=== PATIENT | male | born 1955 | race Two or more races ===

== ENCOUNTER 2018-06-26 08:51 | Emergency (ER) | payer OTHER ==
[~2018-06-26] VITALS: Ht 165.1 cm; Wt 90.7 kg
[2018-06-26 08:58] VITALS: BP 179/86
[2018-06-26] MEDS ORDERED: AMLODIPINE BESY10 MG ORAL (09:02)
[2018-06-26] MEDS ORDERED: ATORVASTATIN CA20 MG ORAL (09:02)
[2018-06-26] MEDS ORDERED: LISINOPRIL10 MG ORAL (09:02)
[2018-06-26] MEDS ORDERED: METFORMIN HCL500 M1 ORAL (09:02)
--- NOTE | 2018-06-26 09:09 | Emergency Room Report ---
History of Present Illness General Chief Complaint: Chest Pain Source: Patient Present Illness HPI Patient present with complaints of midsternal chest pain Radiation up to the right neck area Pain started last night and has persisted throughout the day Denies any shortness of breath denies any pleurisy Denies any vomiting or diarrhea Patient reports taking medication for diabetes Pain as 5 out of 10 heaviness Denies any fall or trauma and denies any change with position Allergies: Coded Allergies: No Known Allergies (Unverified , 06/26/18) Patient History Past Medical History: see triage record Pertinent Family History: none Reviewed Nursing Documentation: PMH: Agreed; PSxH: Agreed Nursing Documentation-PMH Past Medical History: No History, Except For Hx Cardiac Problems: Yes - high cholesterol Hx Hypertension: Yes Hx Diabetes: Yes Review of Systems All Other Systems: negative except mentioned in HPI Physical Exam Vital Signs Date Time Temp Pulse Resp B/P (MAP) Pulse Ox O2 Delivery O2 Flow Rate FiO2 06/26/18 08:54 97.0 89 16 179/86 97 Room Air 06/26/18 08:58 97 Sp02 EP Interpretation: reviewed, normal General Appearance: well appearing, no apparent distress Head: normocephalic, atraumatic Eyes: bilateral eye PERRL, bilateral eye EOMI ENT: hearing grossly normal, normal pharynx, TMs + canals normal, uvula midline Neck: full range of motion, supple, no meningismus, no bony tend Respiratory: lungs clear, normal breath sounds, no rhonchi, no respiratory distress, no retraction, no accessory muscle use Cardiovascular #1: normal peripheral pulses, regular rate, rhythm, no edema, no gallop, no JVD, no murmur Gastrointestinal: normal bowel sounds, non tender, soft, no mass, no organomegaly, non-distended, no guarding, no hernia, no pulsatile mass, no rebound Genitourinary: no CVA tenderness Musculoskeletal: normal inspection Neurologic: oriented x3, responsive, qc analyst III-XII nml as tested, motor strength/ tone normal, sensory intact Psychiatric: mood/affect normal Skin: normal color, no rash, warm/dry, palpation normal Lymphatic: normal inspection, no adenopathy Medical Decision Making Diagnostic Impression: Primary Impression: ACS (acute coronary syndrome) ER Course Patient is a fairly complex patient with multiple differential to consideration including but not limited to cardiac cardiopulmonary and vascular emergencies Patient's cardiac enzyme is negative EKG does not show any acute ST elevations Patient's pain did not improve significantly with nitroglycerin and received further pain medicine Now reporting the patient is worse with movement secondary to insurance purposes requires transfer for continued care Labs Test 06/26/18 09:15 White Blood Count 12.4 K/UL (4.8-10.8) Red Blood Count 4.48 M/UL (4.70-6.10) Hemoglobin 15.1 G/DL (14.2-18.0) Hematocrit 42.9 % (42.0-52.0) Mean Corpuscular Volume 96 FL (80-99) Mean Corpuscular Hemoglobin 33.7 PG (27.0-31.0) Mean Corpuscular Hemoglobin Concent 35.3 G/DL (32.0-36.0) Red Cell Distribution Width 11.1 % (11.6-14.8) Platelet Count 148 K/UL (150-450) Mean Platelet Volume 8.6 FL (6.5-10.1) Neutrophils (%) (Auto) % (45.0-75.0) Lymphocytes (%) (Auto) % (20.0-45.0) Monocytes (%) (Auto) % (1.0-10.0) Eosinophils (%) (Auto) % (0.0-3.0) Basophils (%) (Auto) % (0.0-2.0) Differential Total Cells Counted 100 Neutrophils % (Manual) 84 % (45-75) Lymphocytes % (Manual) 3 % (20-45) Monocytes % (Manual) 3 % (1-10) Eosinophils % (Manual) 0 % (0-3) Basophils % (Manual) 0 % (0-2) Band Neutrophils 10 % (0-8) Platelet Estimate Decreased Platelet Morphology Normal Red Blood Cell Morphology Normal Sodium Level 134 MMOL/L (136-145) Potassium Level 4.1 MMOL/L (3.5-5.1) Chloride Level 100 MMOL/L (98-107) Carbon Dioxide Level 22 MMOL/L (21-32) Anion Gap 12 mmol/L (5-15) Blood Urea Nitrogen 14 mg/dL (7-18) Creatinine 0.9 MG/DL (0.55-1.30) Estimat Glomerular Filtration Rate > 60 mL/min (>60) Glucose Level 335 MG/DL (74-106) Calcium Level 9.1 MG/DL (8.5-10.1) Total Bilirubin 1.1 MG/DL (0.2-1.0) Direct Bilirubin 0.3 MG/DL (0.0-0.3) Aspartate Amino Transf (AST/SGOT) 14 U/L (15-37) Alanine Aminotransferase (ALT/SGPT) 42 U/L (12-78) Alkaline Phosphatase 64 U/L (46-116) Total Creatine Kinase 99 U/L (26-308) Creatine Kinase MB 1.2 NG/ML (0.0-3.6) Creatine Kinase MB Relative Index 1.2 Troponin I 0.000 ng/mL (0.000-0.056) Pro-B-Type Natriuretic Peptide 201 pg/mL (0-125) Total Protein 7.6 G/DL (6.4-8.2) Albumin 3.6 G/DL (3.4-5.0) Globulin 4.0 g/dL Albumin/Globulin Ratio 0.9 (1.0-2.7) Lipase 109 U/L (73-393) EKG Diagnostic Results Rate: normal Rhythm: NSR ST Segments: no acute changes Rhythm Strip Diag. Results EP Interpretation: yes Rate: 66 Rhythm: NSR, no PVC's, no ectopy Chest X-Ray Diagnostic Results Chest X-Ray Diagnostic Results : Chest X-Ray Ordered: Yes # of Views/Limited/Complete: 1 View Indication: Chest Pain EP Interpretation: Yes Interpretation: no consolidation, no effusion, no pneumothorax Impression: No acute disease Electronically Signed by: Dahlia Banuelos DO Last Vital Signs Date Time Temp Pulse Resp B/P (MAP) Pulse Ox O2 Delivery O2 Flow Rate FiO2 06/26/18 08:58 92 14 Room Air 97 06/26/18 08:58 97.0 179/86 97 Status: improved Disposition: XFER SHT-TRM HOSP Condition: Serious Dahlia Banuelos DO Jun 26, 2018 09:09
[2018-06-26] MEDS ORDERED: Aspirin Baby 81mg ORAL ONE (09:15)
[2018-06-26] MEDS ORDERED: Nitroglycerin 2% oint pkt TOPIC ONE (09:15)
[2018-06-26 09:36] LABS: HEMATOCRIT 42.9 % (42.0-52.0); HEMOGLOBIN 15.1 G/DL (14.2-18.0); MEAN CORPUSCULAR VOLUME 96 FL (80-99); PLATELET COUNT 148 K/UL (150-450); RED BLOOD COUNT 4.48 M/UL (4.70-6.10); RED CELL DISTRIBUTION WIDTH 11.1 % (11.6-14.8); WHITE BLOOD COUNT 12.4 K/UL (4.8-10.8)
[2018-06-26 09:56] LABS: ANION GAP 12 mmol/L (5-15); BLOOD UREA NITROGEN 14 mg/dL (7-18); CALCIUM 9.1 MG/DL (8.5-10.1); CARBON DIOXIDE 22 MMOL/L (21-32); CHLORIDE 100 MMOL/L (98-107); CREATININE 0.9 MG/DL (0.55-1.30); POTASSIUM 4.1 MMOL/L (3.5-5.1); SODIUM 134 MMOL/L (136-145)
[2018-06-26 10:11] LABS: ALANINE AMINOTRANSFERASE 42 U/L (12-78); ALBUMIN 3.6 G/DL (3.4-5.0); ALBUMIN/GLOBULIN RATIO 0.9 (1.0-2.7); ALKALINE PHOSPHATASE 64 U/L (46-116); ASPARTATE AMINO TRANSFERASE 14 U/L (15-37); BILIRUBIN,TOTAL 1.1 MG/DL (0.2-1.0); CKMB 1.2 NG/ML (0.0-3.6); CREATINE KINASE 99 U/L (26-308)
[2018-06-26 10:14] LABS: BILIRUBIN,DIRECT 0.3 MG/DL (0.0-0.3)
[2018-06-26] MEDS ORDERED: Morphine Sulfate 4mg/ml Inj (IV/IM USE ONLY) IVP ONE (10:45)
[2018-06-26 11:43] VITALS: BP 141/72
--- NOTE | 2018-06-27 09:12 | Diagnostic Imaging Report ---
Indication: Chest pain Comparison: None A single view chest radiograph was obtained. Findings: Cardiomediastinal appearance is within normal limits for age. The lungs are clear. Pulmonary vascularity is appropriate. The diaphragmatic contour is smooth and costophrenic angles are sharp. No pleural effusions are identified. The bones are unremarkable. Impression: No acute findings
--- NOTE | 2018-06-27 15:59 | Cardiology Report ---
APPROVED REPORT EKG Measurement Heart [id number] Normal sinus rhythm Normal ECG
== END 2018-06-26 11:45 | disposition short-term general hospital (02) ==
LOC: EMR 09:20
DX: I24.9 Acute ischemic heart disease, unspecified (principal); E11.9 Type 2 diabetes mellitus without complications; E78.00 Pure hypercholesterolemia, unspecified; I10 Essential (primary) hypertension
CPT/HCPCS: 36415; 71045; 80053; 82248; 82550; 82553; 83690; 83880; 84484; 85007; 85025; 93005; 96374; 96375; 99285; J2270; J2405

== ENCOUNTER 2019-01-08 06:07 | Inpatient (IN) | payer BC, MEDICAID, OTHER ==
[~2019-01-08] VITALS: Ht 165.1 cm; Wt 102.5 kg
[~2019-01-08 06:07] MED LIST: AMLODIPINE BESY10 MG ORAL; ATORVASTATIN CA20 MG ORAL; LISINOPRIL10 MG ORAL; METFORMIN HCL500 M1 ORAL
--- NOTE | 2019-01-08 06:25 | NUR ---
ED Nurse Note: Pt ambulated to ED from home c/o dizziness/nausea and vomitting since 1700 yesterday. Pt is A&Ox4, denies pain at this time. VSS
[2019-01-08 06:27] VITALS: BP 143/80
[2019-01-08] MEDS ORDERED: Meclizine 25mg tab ORAL ONE (06:45)
[2019-01-08 06:50] LABS: APPEARANCE,URINE CLEAR; BILIRUBIN, URINE NEGATIVE (NEGATIVE); COLOR,URINE PALE YELLOW; GLUCOSE, URINE (UA) 4+ (NEGATIVE); KETONES,URINE NEGATIVE (NEGATIVE); LEUKOCYTE ESTERASE ,URINE NEGATIVE (NEGATIVE); NITRITE,URINE NEGATIVE (NEGATIVE); PH,URINE 5 (4.5-8.0); PROTEIN,URINE 2+ (NEGATIVE); UROBILINOGEN,URINE NORMAL MG/DL (0.0-1.0)
[2019-01-08 06:58] LABS: BASOPHILS % (AUTO) 0.8 % (0.0-2.0); EOSINOPHILS % (AUTO) 2.5 % (0.0-3.0); HEMATOCRIT 42.2 % (42.0-52.0); HEMOGLOBIN 15.2 G/DL (14.2-18.0); LYMPHOCYTES % (AUTO) 30.8 % (20.0-45.0); MEAN CORPUSCULAR VOLUME 91 FL (80-99); MONOCYTES % (AUTO) 5.4 % (1.0-10.0); NEUTROPHILS % (AUTO) 60.5 % (45.0-75.0); PLATELET COUNT 168 K/UL (150-450); RED BLOOD COUNT 4.63 M/UL (4.70-6.10); RED CELL DISTRIBUTION WIDTH 11.3 % (11.6-14.8); WHITE BLOOD COUNT 6.2 K/UL (4.8-10.8)
--- NOTE | 2019-01-08 06:58 | Emergency Room Report ---
History of Present Illness General Chief Complaint: Dizziness Source: Patient Present Illness HPI 63-year-old male with history of hypertension, diabetes, high cholesterol resents with episodic room spinning dizziness and associated nausea with a few episodes of vomiting this morning but started yesterday around 5 PM, triggered by turning his head rapidly. Symptoms like this before, denies headache, denies blurred vision, slurred speech, numbness, tingling, weakness, abdominal pain. He reports he has not tried medications for it, and that he has not had any loss of consciousness, gait instability, but reports he finally came to the ER this morning because it was worse in the start vomiting, yesterday it was more just the dizziness that lasted a few minutes and then improved with rest. Allergies: Coded Allergies: No Known Allergies (Unverified , 06/26/18) Patient History Past Medical History: see triage record Reviewed Nursing Documentation: PMH: Agreed; PSxH: Agreed Nursing Documentation-PMH Past Medical History: No History, Except For Hx Cardiac Problems: Yes - high cholesterol Hx Hypertension: Yes Hx Diabetes: Yes Review of Systems All Other Systems: negative except mentioned in HPI Physical Exam Vital Signs Date Time Temp Pulse Resp B/P (MAP) Pulse Ox O2 Delivery O2 Flow Rate FiO2 01/08/19 06:16 97.9 60 14 143/80 (101) 96 Room Air Sp02 EP Interpretation: reviewed, normal General Appearance: no apparent distress, alert, non-toxic Head: normocephalic Eyes: bilateral eye normal inspection, bilateral eye PERRL, bilateral eye EOMI ENT: normal ENT inspection, hearing grossly normal, normal pharynx, no angioedema, normal voice, moist mucus membranes Neck: normal inspection, full range of motion, supple, thyroid normal, supple/ symm/no masses Respiratory: chest non-tender, lungs clear, normal breath sounds, no rhonchi, no respiratory distress, no retraction, no accessory muscle use, no wheezing, chest symmetrical, palpation of chest normal Cardiovascular #1: normal peripheral pulses, regular rate, rhythm, no edema Cardiovascular #2: 2+ radial (R), 2+ radial (L) Gastrointestinal: normal inspection, non tender, soft, no mass, no guarding, no rebound Rectal: deferred Genitourinary: normal inspection, no CVA tenderness Musculoskeletal: back normal, gait/station normal, normal range of motion, non- tender, no calf tenderness Neurologic: alert, oriented x3, responsive, presales consultant III-XII nml as tested, motor strength/tone normal, sensory intact, cerebellar normal, normal gait, speech normal, nystagmus - +rotatory towards L in both eyes; equivocal juju-hallpike maneuver Psychiatric: judgement/insight normal, memory normal, mood/affect normal Skin: warm/dry Lymphatic: no adenopathy Medical Decision Making Diagnostic Impression: Primary Impression: Dizziness ER Course Patient with signs symptoms consistent with vertigo, given hypertension, diabetes, high cholesterol, age above 60, and no previous history of similar complaints, suspect he is high risk for central vertigo, was given meclizine, head CT with no acute disease, given aspirin, otherwise work-up fairly unremarkable, patient does have reproducible vertigo, will admit for further monitoring, MRI, medications to improve vertigo. EKG Diagnostic Results EKG Time: 06:26 EP Interpretation: no stemi Rate: normal Rhythm: NSR ST Segments: no acute changes ASA given to the pt in ED: Yes Rhythm Strip Diag. Results Rhythm Strip Time: 06:56 EP Interpretation: yes Rate: 63 Rhythm: NSR, no PVC's, no ectopy Chest X-Ray Diagnostic Results Chest X-Ray Diagnostic Results : Chest X-Ray Ordered: Yes # of Views/Limited/Complete: 1 View Indication: Other - htn EP Interpretation: Yes Interpretation: no consolidation, no effusion, no pneumothorax, no acute cardiopulmonary disease Impression: No acute disease Electronically Signed by: Dandy Andersen MD CT/MRI/US Diagnostic Results CT/MRI/US Diagnostic Results : Imaging Test Ordered: ct head noncontrast Impression no acute dz per radiology Last Vital Signs Date Time Temp Pulse Resp B/P (MAP) Pulse Ox O2 Delivery O2 Flow Rate FiO2 01/08/19 06:27 60 14 Room Air 01/08/19 06:27 97.9 143/80 96 Disposition: ADMITTED INPATIENT Condition: Stable Signed Out To: Dr Marcos Referrals: [facility],REFERRING (PCP) DANDY ANDERSEN M.D Jan 08, 2019 06:58
--- NOTE | 2019-01-08 07:06 | NUR ---
HAND-OFF: Report given to Pablo MICHELLE RN.
[2019-01-08 07:07] VITALS: BP 128/83
--- NOTE | 2019-01-08 07:07 | NUR ---
ED Nurse Note: Received patient resting in bed without signs of acute distress.
--- NOTE | 2019-01-08 07:07 | NUR ---
Note jimmy in EDM - 01/08/19 at 0724 by KDEARING ED Nurse Note: Received patient resting in bed. no acute distress noted. daughter at bedside.
[2019-01-08 07:16] LABS: ANION GAP 6 mmol/L (5-15); BLOOD UREA NITROGEN 13 mg/dL (7-18); CALCIUM 9.1 MG/DL (8.5-10.1); CARBON DIOXIDE 25 MMOL/L (21-32); CHLORIDE 104 MMOL/L (98-107); CREATININE 0.9 MG/DL (0.55-1.30); POTASSIUM 3.4 MMOL/L (3.5-5.1); SODIUM 135 MMOL/L (136-145)
[2019-01-08 07:21] LABS: ALANINE AMINOTRANSFERASE 33 U/L (12-78); ALBUMIN/GLOBULIN RATIO 1.1 (1.0-2.7); ALKALINE PHOSPHATASE 60 U/L (46-116); ASPARTATE AMINO TRANSFERASE 18 U/L (15-37); BILIRUBIN,TOTAL 0.6 MG/DL (0.2-1.0)
--- NOTE | 2019-01-08 07:26 | NUR ---
ED Nurse Note: x-ray at bedside.
--- NOTE | 2019-01-08 07:28 | NUR ---
ED Nurse Note: pt went down for CT with 1 tech in stable condition.
--- NOTE | 2019-01-08 07:37 | NUR ---
ED Nurse Note: Pt came back from CT scan in stable condition.
--- NOTE | 2019-01-08 08:34 | Diagnostic Imaging Report ---
Indication: Shortness of Technique: One view of the chest Comparison: 06/26/2018 Findings: Lungs and pleural spaces are clear. Heart size is normal . No significant interim change Impression: No acute process
--- NOTE | 2019-01-08 08:37 | Diagnostic Imaging Report ---
Indications: Vertigo, vomiting Technique: Spiral acquisitions obtained through the brain. Angled axial and coronal 5 x 5 mm slices were reconstructed. Total dose length product 1379.6 mGycm. CTDI vol(s) 70.38 mGy. Dose reduction achieved using automated exposure control Comparison: None. Findings: No acute intracranial hemorrhage or edema, mass effect, nor midline shift. Normal-sized ventricles and extra axial CSF spaces. Normal espino-white differentiation. Intact calvarium. Mastoids are clear. There is ethmoid sinus opacification noted. Impression: Essentially unremarkable exam. Negative for acute intracranial bleed or mass effect Incidental finding of ethmoid sinus disease The CT scanner at [facility] is accredited by the [employer] and the scans are performed using protocols designed to limit radiation exposure to as low as reasonably achievable to attain images of sufficient resolution adequate for diagnostic evaluation.
--- NOTE | 2019-01-08 09:00 | NUR ---
ED Nurse Note: per AMISHA Rivero she is with another pt at this moment and CN in meeting. she will call me back in 10 minutes.
[2019-01-08] MEDS: Aspirin Baby 81mg ORAL SCH (09:11)
--- NOTE | 2019-01-08 09:16 | NUR ---
ED Nurse Note: called again for report. no answer. will try again.
--- NOTE | 2019-01-08 09:24 | NUR ---
ED Nurse Note: Report given to AMISHA Rivero.
--- NOTE | 2019-01-08 09:28 | NUR ---
ED Nurse Note: pt left unit with 1 services tech and 1 RN in stable condition.
--- NOTE | 2019-01-08 10:00 | NUR ---
NURSE NOTES: Admitted patient from ER TO tele RM 204-1 via wheelchair. Patient is alert and oriented X4, denies any pain at this time. No nausea and vomiting noted. Patient is ambulatory with steady gait.. Skin is intact. IV is intact and patent, SL. Oriented patient to room and surrounding. Bed is on lowest level, brakes engaged for safety. is at bedside. Patient's money $119.00 sent home with patient's (Charito Tavarez). Notified MD of admission. All admission orders received and entered. Patient is resting comfortably in room. Will continue with the plan of care.
[2019-01-08 10:44] VITALS: BP 126/70
[2019-01-08 12:00] VITALS: BP 121/79
--- NOTE | 2019-01-08 14:33 | Consultation ---
Consult Note Consult Note 63-year-old male with history of hypertension, diabetes, high cholesterol resents with episodic room spinning dizziness and associated nausea with a few episodes of vomiting this morning but started yesterday around 5 PM, triggered by turning his head rapidly. Symptoms like this before, denies headache, denies blurred vision, slurred speech, numbness, tingling, weakness, abdominal pain. He reports he has not tried medications for it, and that he has not had any loss of consciousness, gait instability, but reports he finally came to the ER this morning because it was worse in the start vomiting, yesterday it was more just the dizziness that lasted a few minutes and then improved with rest. No Known Allergies (Unverified , 06/26/18) Past Medical History: No History, Except For Hx Cardiac Problems: Yes - high cholesterol Hx Hypertension: Yes Hx Diabetes: Yes examined interviewed Assessment/Plan ? Dehydration- Orthostatics DM + Proteinuria HTN ? Gastroparesis Hold BP meds BP and BS check K supplement per orders Janes Cruz MD Jan 08, 2019 14:33
[2019-01-08] MEDS ORDERED: Meclizine 25mg tab ORAL PRN (14:45)
[2019-01-08] MEDS: Nateglinide 60mg tab ORAL SCH (16:22)
[2019-01-08] MEDS: NovoLOG Insulin Flexpen SUBQ SCH ×2 (17:24→21:00)
--- NOTE | 2019-01-08 18:49 | Cardiology Report ---
APPROVED REPORT EKG Measurement Heart [id number] Normal sinus rhythm Normal ECG
--- NOTE | 2019-01-08 19:17 | NUR ---
HAND-OFF: Report given to AMISHA Aguilar. Patient is in stable condition.
--- NOTE | 2019-01-08 19:18 | NUR ---
NURSE NOTES: Got report from Nikolas LION. Pt in stable condition. Denies any pain. No s/s of distress or discomfort noted. Pt resting in bed comfortably. Bed in low and locked position, call light within reach, bedside table within reach. Continue to monitor.
[2019-01-08 20:00] VITALS: BP 128/66
[2019-01-09 00:07] VITALS: BP 125/67
[2019-01-09 04:20] VITALS: BP 129/70
[2019-01-09] MEDS: Nateglinide 60mg tab ORAL SCH ×2 (06:00→11:45)
[2019-01-09] MEDS: NovoLOG Insulin Flexpen SUBQ SCH ×3 (06:03→16:49)
[2019-01-09 07:31] LABS: BASOPHILS % (AUTO) 0.7 % (0.0-2.0); HEMATOCRIT 41.5 % (42.0-52.0); HEMOGLOBIN 14.5 G/DL (14.2-18.0); LYMPHOCYTES % (AUTO) 45.6 % (20.0-45.0); MEAN CORPUSCULAR VOLUME 93 FL (80-99); MONOCYTES % (AUTO) 7.3 % (1.0-10.0); NEUTROPHILS % (AUTO) 42.5 % (45.0-75.0); PLATELET COUNT 176 K/UL (150-450); RED BLOOD COUNT 4.44 M/UL (4.70-6.10); RED CELL DISTRIBUTION WIDTH 11.7 % (11.6-14.8); WHITE BLOOD COUNT 4.5 K/UL (4.8-10.8)
--- NOTE | 2019-01-09 07:32 | NUR ---
HAND-OFF: Report given to Nikolas LION. Endorsed plan of care.
--- NOTE | 2019-01-09 07:33 | NUR ---
NURSE NOTES: Received patient and report from AMISHA Hernandez. Denies any pain. No s/s of distress or discomfort noted. Patient is eating breakfast. Bed in low and locked position, brakes engaged for safety. Call light within reach, bedside table within reach. Will continue with the plan of care.
--- NOTE | 2019-01-09 07:35 | NUR ---
CASE MANAGEMENT:REVIEW 63 YR OLD MALE PRESENTED TO ER CC: DIZZINESS, NAUSEA AND VOMITING SI: DIZZINESS. ?DEHYDRATION 97.9 60 14 143/80 96% ON RA K-3.4 GLUCOSE+292 IS: IV ZOFRAN 1L NS BOLUS MECLIZINE PO CT ABD/PELVIS CHEST XRAY : TO TELEMETRY UNIT DCP: FROM HOME INTERQUAL CRITERIA MET
[2019-01-09 08:00] VITALS: BP 139/84
[2019-01-09 08:01] LABS: ALANINE AMINOTRANSFERASE 34 U/L (12-78); ALBUMIN/GLOBULIN RATIO 1.3 (1.0-2.7); ALKALINE PHOSPHATASE 50 U/L (46-116); ANION GAP 10 mmol/L (5-15); ASPARTATE AMINO TRANSFERASE 22 U/L (15-37); BILIRUBIN,TOTAL 0.7 MG/DL (0.2-1.0); BLOOD UREA NITROGEN 11 mg/dL (7-18); CARBON DIOXIDE 26 MMOL/L (21-32); CHLORIDE 103 MMOL/L (98-107); CHOLESTEROL 182 MG/DL (< 200); CREATININE 0.8 MG/DL (0.55-1.30); HDL CHOLESTEROL 26 MG/DL (40-60); PHOSPHORUS 3.7 MG/DL (2.5-4.9); POTASSIUM 3.8 MMOL/L (3.5-5.1); SODIUM 139 MMOL/L (136-145); TRIGLYCERIDES 260 MG/DL (30-150)
[2019-01-09] MEDS: Aspirin Baby 81mg ORAL SCH (08:20)
--- NOTE | 2019-01-09 08:47 | Consultation ---
History of Present Illness General Date patient seen: Jan 09, 2019 Reason for Hospitalization: Dizziness Present Illness HPI 63-year-old male with history of hypertension, diabetes, high cholesterol resents with episodic room spinning dizziness and associated nausea with a few episodes of vomiting this morning but started yesterday around 5 PM, triggered by turning his head rapidly. Symptoms like this before, denies headache, denies blurred vision, slurred speech, numbness, tingling, weakness, abdominal pain. He reports he has not tried medications for it, and that he has not had any loss of consciousness, gait instability, but reports he finally came to the ER this morning because it was worse in the start vomiting, yesterday it was more just the dizziness that lasted a few minutes and then improved with rest. Allergies: Coded Allergies: No Known Allergies (Unverified , 06/26/18) Medication History Scheduled Amlodipine Besylate* (Amlodipine Besylate*), Unknown Dose ORAL DAILY, (Reported) Atorvastatin Calcium* (Atorvastatin Calcium*), Unknown Dose ORAL BEDTIME, ( Reported) Lisinopril* (Lisinopril*), 10 MG ORAL DAILY, (Reported) Metformin Hcl* (Metformin Hcl*), 500 MG ORAL TWICE A DAY, (Reported) Patient History Healthcare decision maker Resuscitation status Full Code Advanced Directive on File No Review of Systems Review of Symptoms General ROS: no weight loss or fever Psychological ROS: no depression or mood changes, no memory loss Ophthalmic ROS: no visual changes or eye irritation ENT ROS: no nasal congestion, hearing loss, dizziness Allergy and Immunology ROS: no allergic symptoms or urticaria Hematological and Lymphatic ROS: no swollen glands, unusual bleeding or bruising Endocrine ROS: no polyuria, polydipsia, weight changes, temperature intolerance Respiratory ROS: no cough, shortness of breath, or wheezing Cardiovascular ROS: no chest pain or dyspnea on exertion Gastrointestinal ROS: denies abdominal pain, bright red blood in stool. Musculoskeletal ROS: no myalgias or arthralgias Neurological ROS: no TIA or stroke symptoms Dermatological ROS: no new or changing skin lesions, rashes or pruritis Physical Exam Physical Exam General appearance: alert, cooperative, no distress, appears stated age Head: Normocephalic, without obvious abnormality, atraumatic Eyes: conjunctivae/corneas clear. PERRL, EOM's intact. Fundi benign Throat: Lips, mucosa, and tongue normal. Teeth and gums normal Neck: supple, symmetrical, trachea midline, no adenopathy, thyroid: not enlarged, symmetric, no tenderness/mass/nodules, no carotid bruit and no JVD Lungs: clear to auscultation bilaterally Heart: regular rate and rhythm, S1, S2 normal, no murmur, click, rub or gallop Abdomen: soft, non-tender. Bowel sounds normal. No masses, no organomegaly Extremities: extremities normal, atraumatic, no cyanosis or edema Pulses: 2+ and symmetric Skin: Skin color, texture, turgor normal. No rashes or lesions Neurologic: Grossly normal Last 24 Hour Vital Signs Date Time Temp Pulse Resp B/P (MAP) Pulse Ox O2 Delivery O2 Flow Rate FiO2 01/09/19 04:20 98.0 68 19 129/70 (89) 95 01/09/19 04:01 48 01/09/19 00:07 97.9 69 19 125/67 (86) 95 01/09/19 00:00 50 01/08/19 23:00 Room Air 01/08/19 20:00 97.7 67 19 128/66 (86) 95 01/08/19 20:00 74 01/08/19 16:00 60 01/08/19 12:00 97.9 71 20 121/79 (93) 97 01/08/19 12:00 62 01/08/19 10:44 97.7 58 20 126/70 (88) 96 01/08/19 10:39 Room Air 01/08/19 09:40 58 01/08/19 09:28 97.9 70 16 126/78 100 Room Air Intake and Output 01/08/19 01/09/19 19:00 07:00 Intake Total 1500 ml Balance 1500 ml Intake Oral 500 ml IV Total 1000 ml # Voids 3 6 # Bowel Movements 1 1 Laboratory Tests Test 01/09/19 05:23 White Blood Count 4.5 K/UL (4.8-10.8) L Red Blood Count 4.44 M/UL (4.70-6.10) L Hemoglobin 14.5 G/DL (14.2-18.0) Hematocrit 41.5 % (42.0-52.0) L Mean Corpuscular Volume 93 FL (80-99) Mean Corpuscular Hemoglobin 32.6 PG (27.0-31.0) H Mean Corpuscular Hemoglobin Concent 34.8 G/DL (32.0-36.0) Red Cell Distribution Width 11.7 % (11.6-14.8) Platelet Count 176 K/UL (150-450) Mean Platelet Volume 6.9 FL (6.5-10.1) Neutrophils (%) (Auto) 42.5 % (45.0-75.0) L Lymphocytes (%) (Auto) 45.6 % (20.0-45.0) H Monocytes (%) (Auto) 7.3 % (1.0-10.0) Eosinophils (%) (Auto) 4.0 % (0.0-3.0) H Basophils (%) (Auto) 0.7 % (0.0-2.0) Sodium Level 139 MMOL/L (136-145) Potassium Level 3.8 MMOL/L (3.5-5.1) Chloride Level 103 MMOL/L (98-107) Carbon Dioxide Level 26 MMOL/L (21-32) Anion Gap 10 mmol/L (5-15) Blood Urea Nitrogen 11 mg/dL (7-18) Creatinine 0.8 MG/DL (0.55-1.30) Estimat Glomerular Filtration Rate > 60 mL/min (>60) Glucose Level 187 MG/DL (74-106) #H Hemoglobin A1c 8.1 % (4.3-6.0) H Uric Acid 5.7 MG/DL (2.6-7.2) Calcium Level 9.0 MG/DL (8.5-10.1) Phosphorus Level 3.7 MG/DL (2.5-4.9) Magnesium Level 1.9 MG/DL (1.8-2.4) Total Bilirubin 0.7 MG/DL (0.2-1.0) Aspartate Amino Transf (AST/SGOT) 22 U/L (15-37) Alanine Aminotransferase (ALT/SGPT) 34 U/L (12-78) Alkaline Phosphatase 50 U/L (46-116) Troponin I 0.000 ng/mL (0.000-0.056) C-Reactive Protein, Quantitative < 0.4 mg/dL (0.00-0.90) Pro-B-Type Natriuretic Peptide 46 pg/mL (0-125) Total Protein 7.0 G/DL (6.4-8.2) Albumin 4.0 G/DL (3.4-5.0) Globulin 3.0 g/dL Albumin/Globulin Ratio 1.3 (1.0-2.7) Triglycerides Level 260 MG/DL (30-150) H Cholesterol Level 182 MG/DL (< 200) LDL Cholesterol 112 mg/dL (<100) H HDL Cholesterol 26 MG/DL (40-60) L Cholesterol/HDL Ratio 7.0 (3.3-4.4) H Vitamin B12 Level 477 PG/ML (193-986) Thyroid Stimulating Hormone (TSH) 1.545 uiU/mL (0.358-3.740) Height (Feet): 5 Height (Inches): 5.00 Weight (Pounds): 226 Medications Current Medications Medications (Trade) Dose Ordered Sig/Jade Route PRN Reason Start Time Stop Time Status Last Admin Dose Admin Aspirin (ASA) 162 mg DAILY ORAL 01/08/19 09:15 02/07/19 09:14 01/09/19 08:20 Dextrose (Dextrose 50%) 25 ml Q30M PRN IV Hypoglycemia 01/08/19 16:00 02/07/19 15:59 Dextrose (Dextrose 50%) 50 ml Q30M PRN IV Hypoglycemia 01/08/19 16:00 02/07/19 15:59 Insulin Aspart (NovoLOG) BEFORE MEALS AND HS SUBQ 01/08/19 16:30 02/07/19 16:29 01/09/19 06:03 Meclizine HCl (Antivert) 25 mg Q6H PRN ORAL for dizziness 01/08/19 14:45 02/07/19 14:44 Nateglinide (Starlix) 60 mg TIAC ORAL 01/08/19 16:30 02/07/19 16:29 01/09/19 06:00 Ondansetron HCl (Zofran) 4 mg Q6H PRN IVP Nausea & Vomiting 01/08/19 11:15 02/07/19 11:14 Pantoprazole (Protonix) 40 mg BID ORAL 01/08/19 18:00 02/08/19 08:59 01/09/19 08:20 Potassium Chloride (K-Dur) 40 meq DAILY ORAL 01/08/19 14:31 02/07/19 14:30 01/09/19 08:19 Assessment/Plan Problem List: (1) Chest pain ICD Codes: R07.9 - Chest pain, unspecified SNOMED: 51265396 (2) Dizziness ICD Codes: R42 - Dizziness and giddiness SNOMED: 460792572, [id number] Assessment/Plan: Intermittent vertigo likely peripheral bppv. Lightheadedness resolved no need for mri brain pt ot and dispo [facility] Hospital declaration INPATIENT level of care is warranted for this patient because patient is a 89 year old with who presents with suspicion of . I have a high level of concern because . Patient is at high risk for . Plan of care/treatment include . Patient care is expected to be greater than 2 midnights. OBSERVATION level of care is warranted for this patient. Patient is a 89 year old with who presents with . Patient will be admitted for 1 midnight, but if additional night(s) is/are necessary, patient will be converted to inpatient status for the entire hospitalization Disposition: Once the patient is stable to leave the hospital, I anticipate the patient will likely be discharged to the following environment: Estimated discharge date: I spent 70 minutes on this patient's case, and minutes was dedicated to counseling and/or care coordination. MIPS (Merit-based Incentive Payment System) Applicable CPT: 70184, 74679 CHECK ALL THAT ARE MET: Measure #5 (CHF): All ages. Prescribe LISA/ARB upon discharge for patients with left ventricular systolic dysfunction. If not, the reason is clearly documented in the medical chart. Measure #8 (CHF): All ages. Prescribe a beta randa upon discharge for patients with left ventricular systolic dysfunction. If not, the reason is clearly documented in the medical chart. Measure #47 Advance care plan or surrogate decision maker documented in the medical record. Measure #130 The provider has documented, updated, or reviewed the patients current medication list and has documented it in the patients note. Measure #374 (All): Send report to referring provider. Measure #407(Sepsis due to MSSA bacteremia): Age 18+ Patient treated with a beta-lactam antibiotic (Nafcillin, Oxacillin or Cefazolin) as definitive therapy. MEDICAL COMPLEXITY High complexity medical decision making (need 2/3 categories) Problem - need 4 points Acute/new problem with new plan for workup (4 points, 1 max) Acute/new problem without additional workup (3 points, 1 max) Unstable chronic problem actively being managed (2 point each, 2 max) Stable chronic problem actively being managed (1 point each, 2 max) Self-limited/transient process (constipation, muscle ache, etc) (1 point each , 2 max) Data - need 4 points Reviewed labs/imaging studies (1 points, 2 max) Independent review of imaging (EKG, xrays, etc) (2 points, 2 max) Discussed case with consult/other MD/RN (2 points, 2 max) High Risk - qualify if have one of the following: Severe exacerbation of acute problem, acute mental status change, IV narcotics , monitoring drug levels (vancomycin, INR, tacrolimus etc) Devonte Toscano MD Jan 09, 2019 08:47
--- NOTE | 2019-01-09 10:02 | NUR ---
*-* INSURANCE *-* ALL CLINICALS AND REVIEWS HAVE BEEN FAXED TO: [facility] BESS:[facility]MI F:[phone]
--- NOTE | 2019-01-09 10:40 | NUR ---
INSURANCE UPDATED CLINICALS and REVIEW HAVE BEEN FAXED PLEASE FAX THE REVIEW AND CLINICAL TO: [facility] F: [phone] P: [phone]
[2019-01-09 12:00] VITALS: BP 147/85
--- NOTE | 2019-01-09 12:16 | Consultation ---
History of Present Illness General Chief Complaint: Dizziness Present Illness Allergies: Coded Allergies: No Known Allergies (Unverified , 06/26/18) Medication History Scheduled Amlodipine Besylate* (Amlodipine Besylate*), Unknown Dose ORAL DAILY, (Reported) Atorvastatin Calcium* (Atorvastatin Calcium*), Unknown Dose ORAL BEDTIME, ( Reported) Lisinopril* (Lisinopril*), 10 MG ORAL DAILY, (Reported) Metformin Hcl* (Metformin Hcl*), 500 MG ORAL TWICE A DAY, (Reported) Patient History Healthcare decision maker Resuscitation status Full Code Advanced Directive on File No Physical Exam Last 24 Hour Vital Signs Date Time Temp Pulse Resp B/P (MAP) Pulse Ox O2 Delivery O2 Flow Rate FiO2 01/09/19 08:57 Room Air 01/09/19 08:00 92 01/09/19 08:00 97.8 77 20 139/84 (102) 97 01/09/19 04:20 98.0 68 19 129/70 (89) 95 01/09/19 04:01 48 01/09/19 00:07 97.9 69 19 125/67 (86) 95 01/09/19 00:00 50 01/08/19 23:00 Room Air 01/08/19 20:00 97.7 67 19 128/66 (86) 95 01/08/19 20:00 74 01/08/19 16:00 60 Intake and Output 01/08/19 01/09/19 19:00 07:00 Intake Total 1500 ml Balance 1500 ml Intake Oral 500 ml IV Total 1000 ml # Voids 3 6 # Bowel Movements 1 1 Laboratory Tests Test 01/09/19 05:23 White Blood Count 4.5 K/UL (4.8-10.8) L Red Blood Count 4.44 M/UL (4.70-6.10) L Hemoglobin 14.5 G/DL (14.2-18.0) Hematocrit 41.5 % (42.0-52.0) L Mean Corpuscular Volume 93 FL (80-99) Mean Corpuscular Hemoglobin 32.6 PG (27.0-31.0) H Mean Corpuscular Hemoglobin Concent 34.8 G/DL (32.0-36.0) Red Cell Distribution Width 11.7 % (11.6-14.8) Platelet Count 176 K/UL (150-450) Mean Platelet Volume 6.9 FL (6.5-10.1) Neutrophils (%) (Auto) 42.5 % (45.0-75.0) L Lymphocytes (%) (Auto) 45.6 % (20.0-45.0) H Monocytes (%) (Auto) 7.3 % (1.0-10.0) Eosinophils (%) (Auto) 4.0 % (0.0-3.0) H Basophils (%) (Auto) 0.7 % (0.0-2.0) Sodium Level 139 MMOL/L (136-145) Potassium Level 3.8 MMOL/L (3.5-5.1) Chloride Level 103 MMOL/L (98-107) Carbon Dioxide Level 26 MMOL/L (21-32) Anion Gap 10 mmol/L (5-15) Blood Urea Nitrogen 11 mg/dL (7-18) Creatinine 0.8 MG/DL (0.55-1.30) Estimat Glomerular Filtration Rate > 60 mL/min (>60) Glucose Level 187 MG/DL (74-106) #H Hemoglobin A1c 8.1 % (4.3-6.0) H Uric Acid 5.7 MG/DL (2.6-7.2) Calcium Level 9.0 MG/DL (8.5-10.1) Phosphorus Level 3.7 MG/DL (2.5-4.9) Magnesium Level 1.9 MG/DL (1.8-2.4) Total Bilirubin 0.7 MG/DL (0.2-1.0) Aspartate Amino Transf (AST/SGOT) 22 U/L (15-37) Alanine Aminotransferase (ALT/SGPT) 34 U/L (12-78) Alkaline Phosphatase 50 U/L (46-116) Troponin I 0.000 ng/mL (0.000-0.056) C-Reactive Protein, Quantitative < 0.4 mg/dL (0.00-0.90) Pro-B-Type Natriuretic Peptide 46 pg/mL (0-125) Total Protein 7.0 G/DL (6.4-8.2) Albumin 4.0 G/DL (3.4-5.0) Globulin 3.0 g/dL Albumin/Globulin Ratio 1.3 (1.0-2.7) Triglycerides Level 260 MG/DL (30-150) H Cholesterol Level 182 MG/DL (< 200) LDL Cholesterol 112 mg/dL (<100) H HDL Cholesterol 26 MG/DL (40-60) L Cholesterol/HDL Ratio 7.0 (3.3-4.4) H Vitamin B12 Level 477 PG/ML (193-986) Thyroid Stimulating Hormone (TSH) 1.545 uiU/mL (0.358-3.740) Height (Feet): 5 Height (Inches): 5.00 Weight (Pounds): 226 Medications Current Medications Medications (Trade) Dose Ordered Sig/Jade Route PRN Reason Start Time Stop Time Status Last Admin Dose Admin Aspirin (ASA) 162 mg DAILY ORAL 01/08/19 09:15 02/07/19 09:14 01/09/19 08:20 Dextrose (Dextrose 50%) 25 ml Q30M PRN IV Hypoglycemia 01/08/19 16:00 02/07/19 15:59 Dextrose (Dextrose 50%) 50 ml Q30M PRN IV Hypoglycemia 01/08/19 16:00 02/07/19 15:59 Insulin Aspart (NovoLOG) BEFORE MEALS AND HS SUBQ 01/08/19 16:30 02/07/19 16:29 01/09/19 11:47 Meclizine HCl (Antivert) 25 mg Q6H PRN ORAL for dizziness 01/08/19 14:45 02/07/19 14:44 Nateglinide (Starlix) 60 mg TIAC ORAL 01/08/19 16:30 02/07/19 16:29 01/09/19 11:45 Ondansetron HCl (Zofran) 4 mg Q6H PRN IVP Nausea & Vomiting 01/08/19 11:15 02/07/19 11:14 Pantoprazole (Protonix) 40 mg BID ORAL 01/08/19 18:00 02/08/19 08:59 01/09/19 08:20 Potassium Chloride (K-Dur) 40 meq DAILY ORAL 01/08/19 14:31 02/07/19 14:30 01/09/19 08:19 Assessment/Plan Assessment/Plan: Hematology Consult REQ MD: Dahlia Marcos Date patient seen: Jan 09, 2019 Reason for Hospitalization: Dizziness RFC: Leukopenia ID 63-year-old male with history of hypertension, diabetes, high cholesterol resents with episodic room spinning dizziness and associated nausea with a few episodes of vomiting this morning but started yesterday around 5 PM, triggered by turning his head rapidly. Symptoms like this before, denies headache, denies blurred vision, slurred speech, numbness, tingling, weakness, abdominal pain. He reports he has not tried medications for it, and that he has not had any loss of consciousness, gait instability, but reports he finally came to the ER this morning because it was worse in the start vomiting, yesterday it was more just the dizziness that lasted a few minutes and then improved with rest.Hepatitis panel and hiv have been ordered, heme was consulted. All No Known Allergies (Unverified , 06/26/18) Medication Scheduled Amlodipine Besylate* (Amlodipine Besylate*), Unknown Dose ORAL DAILY, (Reported) Atorvastatin Calcium* (Atorvastatin Calcium*), Unknown Dose ORAL BEDTIME, ( Reported) Lisinopril* (Lisinopril*), 10 MG ORAL DAILY, (Reported) Metformin Hcl* (Metformin Hcl*), 500 MG ORAL TWICE A DAY, (Reported) Patient History Healthcare decision maker Resuscitation status Full Code Advanced Directive on File No Review of Symptoms General ROS: no weight loss or fever Psychological ROS: no depression or mood changes, no memory loss Ophthalmic ROS: no visual changes or eye irritation ENT ROS: no nasal congestion, hearing loss, dizziness Allergy and Immunology ROS: no allergic symptoms or urticaria Hematological and Lymphatic ROS: no swollen glands Endocrine ROS: no polyuria, polydipsia Respiratory ROS: no cough, shortness of breath, or wheezing Cardiovascular ROS: no chest pain or dyspnea on exertion Gastrointestinal ROS: denies abdominal pain, bright red blood in stool. Musculoskeletal ROS: no myalgias or arthralgias Neurological ROS: no TIA or stroke symptoms Physical Exam General appearance: alert, cooperative, no distress, appears stated age Head: Normocephalic, without obvious abnormality, atraumatic Eyes: conjunctivae/corneas clear. PERRL, EOM's intact. Fundi benign Throat: Lips, mucosa, and tongue normal. Teeth and gums normal Neck: supple, symmetrical, trachea midline, no adenopathy, thyroid Lungs: clear to auscultation bilaterally Heart: regular rate and rhythm, S1, S2 normal Abdomen: soft, non-tender. Bowel sounds normal Extremities: extremities normal, atraumatic Pulses: 2+ and symmetric Skin: Skin color, texture, turgor normal. No rashes or lesions Last 24 Hour Vital Signs Date Time Temp Pulse Resp B/P (MAP) Pulse Ox O2 Delivery O2 Flow Rate FiO2 01/09/19 04:20 98.0 68 19 129/70 (89) 95 01/09/19 04:01 48 01/09/19 00:07 97.9 69 19 125/67 (86) 95 01/09/19 00:00 50 01/08/19 23:00 Room Air 01/08/19 20:00 97.7 67 19 128/66 (86) 95 01/08/19 20:00 74 01/08/19 16:00 60 01/08/19 12:00 97.9 71 20 121/79 (93) 97 01/08/19 12:00 62 01/08/19 10:44 97.7 58 20 126/70 (88) 96 01/08/19 10:39 Room Air 01/08/19 09:40 58 01/08/19 09:28 97.9 70 16 126/78 100 Room Air Intake and Output 01/08/19 01/09/19 19:00 07:00 Intake Total 1500 ml Balance 1500 ml Intake Oral 500 ml IV Total 1000 ml # Voids 3 6 # Bowel Movements 1 1 Laboratory Tests Test 01/09/19 05:23 White Blood Count 4.5 K/UL (4.8-10.8) L Red Blood Count 4.44 M/UL (4.70-6.10) L Hemoglobin 14.5 G/DL (14.2-18.0) Hematocrit 41.5 % (42.0-52.0) L Mean Corpuscular Volume 93 FL (80-99) Mean Corpuscular Hemoglobin 32.6 PG (27.0-31.0) H Mean Corpuscular Hemoglobin Concent 34.8 G/DL (32.0-36.0) Red Cell Distribution Width 11.7 % (11.6-14.8) Platelet Count 176 K/UL (150-450) Mean Platelet Volume 6.9 FL (6.5-10.1) Neutrophils (%) (Auto) 42.5 % (45.0-75.0) L Lymphocytes (%) (Auto) 45.6 % (20.0-45.0) H Monocytes (%) (Auto) 7.3 % (1.0-10.0) Eosinophils (%) (Auto) 4.0 % (0.0-3.0) H Basophils (%) (Auto) 0.7 % (0.0-2.0) Sodium Level 139 MMOL/L (136-145) Potassium Level 3.8 MMOL/L (3.5-5.1) Chloride Level 103 MMOL/L (98-107) Carbon Dioxide Level 26 MMOL/L (21-32) Anion Gap 10 mmol/L (5-15) Blood Urea Nitrogen 11 mg/dL (7-18) Creatinine 0.8 MG/DL (0.55-1.30) Estimat Glomerular Filtration Rate > 60 mL/min (>60) Glucose Level 187 MG/DL (74-106) #H Hemoglobin A1c 8.1 % (4.3-6.0) H Uric Acid 5.7 MG/DL (2.6-7.2) Calcium Level 9.0 MG/DL (8.5-10.1) Phosphorus Level 3.7 MG/DL (2.5-4.9) Magnesium Level 1.9 MG/DL (1.8-2.4) Total Bilirubin 0.7 MG/DL (0.2-1.0) Aspartate Amino Transf (AST/SGOT) 22 U/L (15-37) Alanine Aminotransferase (ALT/SGPT) 34 U/L (12-78) Alkaline Phosphatase 50 U/L (46-116) Troponin I 0.000 ng/mL (0.000-0.056) C-Reactive Protein, Quantitative < 0.4 mg/dL (0.00-0.90) Pro-B-Type Natriuretic Peptide 46 pg/mL (0-125) Total Protein 7.0 G/DL (6.4-8.2) Albumin 4.0 G/DL (3.4-5.0) Globulin 3.0 g/dL Albumin/Globulin Ratio 1.3 (1.0-2.7) Triglycerides Level 260 MG/DL (30-150) H Cholesterol Level 182 MG/DL (< 200) LDL Cholesterol 112 mg/dL (<100) H HDL Cholesterol 26 MG/DL (40-60) L Cholesterol/HDL Ratio 7.0 (3.3-4.4) H Vitamin B12 Level 477 PG/ML (193-986) Thyroid Stimulating Hormone (TSH) 1.545 uiU/mL (0.358-3.740) Height (Feet): 5 Height (Inches): 5.00 Weight (Pounds): 226 Medications Current Medications Medications (Trade) Dose Ordered Sig/Jade Route PRN Reason Start Time Stop Time Status Last Admin Dose Admin Aspirin (ASA) 162 mg DAILY ORAL 01/08/19 09:15 02/07/19 09:14 01/09/19 08:20 Dextrose (Dextrose 50%) 25 ml Q30M PRN IV Hypoglycemia 01/08/19 16:00 02/07/19 15:59 Dextrose (Dextrose 50%) 50 ml Q30M PRN IV Hypoglycemia 01/08/19 16:00 02/07/19 15:59 Insulin Aspart (NovoLOG) BEFORE MEALS AND HS SUBQ 01/08/19 16:30 02/07/19 16:29 01/09/19 06:03 Meclizine HCl (Antivert) 25 mg Q6H PRN ORAL for dizziness 01/08/19 14:45 02/07/19 14:44 Nateglinide (Starlix) 60 mg TIAC ORAL 01/08/19 16:30 02/07/19 16:29 01/09/19 06:00 Ondansetron HCl (Zofran) 4 mg Q6H PRN IVP Nausea & Vomiting 01/08/19 11:15 02/07/19 11:14 Pantoprazole (Protonix) 40 mg BID ORAL 01/08/19 18:00 02/08/19 08:59 01/09/19 08:20 Potassium Chloride (K-Dur) 40 meq DAILY ORAL 01/08/19 14:31 02/07/19 14:30 01/09/19 08:19 Assessment/Plan # Leukopenia -- multiple etiologies could be related to underlying liver disease , medication-induced, infection versus viral syndrome, as well as congenital --> peripheral smear has been ordered and does not show significant abnormalities --> Medications have been reviewed --> Continue to monitor for improvement, trend cbc --> Hep panel and HIV have been ordered --> US abd ordered to r/o cirrhosis and hepatosplenomegaly # Chest pain currently improved --> r/o acs # Dizziness - intermittent vertigo likely peripheral bppv. --> per neuro, no need for mri brain # HTN --> sbp goal is <140 --> anti-htn # DM2 --> accuchecks qac and qhs --> per endo The timing of this note does not necessarily reflect the time of the patient was seen. Greatly appreciate consultation! Danish Spivey MD Jan 09, 2019 12:16
--- NOTE | 2019-01-09 14:56 | Nephrology Progress Note ---
Assessment/Plan Problem List: (1) Dizziness (2) Diabetes mellitus (3) Dehydration (4) Proteinuria Assessment ? Dehydration- Orthostatics DM + Proteinuria HTN ? Gastroparesis . Plan Hold BP meds BP and BS check K supplement per orders ? med surg? Tricor for high Trigs Subjective ROS Limited/Unobtainable: No Constitutional: Reports: other - not dizzy Objective Objective Last 24 Hour Vital Signs Date Time Temp Pulse Resp B/P (MAP) Pulse Ox O2 Delivery O2 Flow Rate FiO2 01/09/19 12:00 58 01/09/19 12:00 97.3 58 20 147/85 (105) 97 01/09/19 08:57 Room Air 01/09/19 08:00 92 01/09/19 08:00 97.8 77 20 139/84 (102) 97 01/09/19 04:20 98.0 68 19 129/70 (89) 95 01/09/19 04:01 48 01/09/19 00:07 97.9 69 19 125/67 (86) 95 01/09/19 00:00 50 01/08/19 23:00 Room Air 01/08/19 20:00 97.7 67 19 128/66 (86) 95 01/08/19 20:00 74 01/08/19 16:00 60 Intake and Output 01/08/19 01/09/19 19:00 07:00 Intake Total 1500 ml Balance 1500 ml Intake Oral 500 ml IV Total 1000 ml # Voids 3 6 # Bowel Movements 1 1 Current Medications Medications (Trade) Dose Ordered Sig/Jade Route PRN Reason Start Time Stop Time Status Last Admin Dose Admin Aspirin (ASA) 162 mg DAILY ORAL 01/08/19 09:15 02/07/19 09:14 01/09/19 08:20 Dextrose (Dextrose 50%) 25 ml Q30M PRN IV Hypoglycemia 01/08/19 16:00 02/07/19 15:59 Dextrose (Dextrose 50%) 50 ml Q30M PRN IV Hypoglycemia 01/08/19 16:00 02/07/19 15:59 Insulin Aspart (NovoLOG) BEFORE MEALS AND HS SUBQ 01/08/19 16:30 02/07/19 16:29 01/09/19 11:47 Meclizine HCl (Antivert) 25 mg Q6H PRN ORAL for dizziness 01/08/19 14:45 02/07/19 14:44 Nateglinide (Starlix) 60 mg TIAC ORAL 01/08/19 16:30 02/07/19 16:29 01/09/19 11:45 Ondansetron HCl (Zofran) 4 mg Q6H PRN IVP Nausea & Vomiting 01/08/19 11:15 02/07/19 11:14 Pantoprazole (Protonix) 40 mg BID ORAL 01/08/19 18:00 02/08/19 08:59 01/09/19 08:20 Potassium Chloride (K-Dur) 40 meq DAILY ORAL 01/08/19 14:31 02/07/19 14:30 01/09/19 08:19 Laboratory Tests 01/09/19 05:23: White Blood Count 4.5L, Red Blood Count 4.44L, Hemoglobin 14.5, Hematocrit 41.5L , Mean Corpuscular Volume 93, Mean Corpuscular Hemoglobin 32.6H, Mean Corpuscular Hemoglobin Concent 34.8, Red Cell Distribution Width 11.7, Platelet Count 176, Mean Platelet Volume 6.9, Neutrophils (%) (Auto) 42.5L, Lymphocytes ( %) (Auto) 45.6H, Monocytes (%) (Auto) 7.3, Eosinophils (%) (Auto) 4.0H, Basophils (%) (Auto) 0.7, Sodium Level 139, Potassium Level 3.8, Chloride Level 103, Carbon Dioxide Level 26, Anion Gap 10, Blood Urea Nitrogen 11, Creatinine 0.8, Estimat Glomerular Filtration Rate > 60, Glucose Level 187#H, Hemoglobin A1c 8.1H, Uric Acid 5.7, Calcium Level 9.0, Phosphorus Level 3.7, Magnesium Level 1.9, Total Bilirubin 0.7, Aspartate Amino Transf (AST/SGOT) 22, Alanine Aminotransferase (ALT/SGPT) 34, Alkaline Phosphatase 50, Troponin I 0.000, C- Reactive Protein, Quantitative < 0.4, Pro-B-Type Natriuretic Peptide 46, Total Protein 7.0, Albumin 4.0, Globulin 3.0, Albumin/Globulin Ratio 1.3, Triglycerides Level 260H, Cholesterol Level 182, LDL Cholesterol 112H, HDL Cholesterol 26L, Cholesterol/HDL Ratio 7.0H, Vitamin B12 Level 477, Thyroid Stimulating Hormone (TSH) 1.545, Hepatitis A IgM Antibody [Pending], Hepatitis B Surface Antigen [Pending], Hepatitis B Core IgM Antibody [Pending], Hepatitis C Antibody [Pending], HIV (1&2) Antibody Rapid Negative Height (Feet): 5 Height (Inches): 5.00 Weight (Pounds): 226 General Appearance: no apparent distress Cardiovascular: normal rate Respiratory/Chest: decreased breath sounds Abdomen: soft Objective no change Janes Cruz MD Jan 09, 2019 14:56
[2019-01-09] MEDS ORDERED: HydrALAZINE 10mg Tab ORAL SCH (15:00)
[2019-01-09] MEDS ORDERED: HydrALAZINE 25mg tab ORAL PRN (15:00)
[2019-01-09 15:59] VITALS: BP 159/79
--- NOTE | 2019-01-09 16:48 | Consultation ---
History of Present Illness General Date patient seen: Jan 09, 2019 Chief Complaint: Dizziness Present Illness HPI Patient is a 63 year old male who presented with initial off balance sensation 2 days ago while driving then yesterday in the AM had severe vertigo with room spinning that lasted a few minutes. He does state it was associated with movement but he has never had this befiore. He denies tinnitus, aurla fullnes, hearing loss, otalgia, otorrhea or freq ear infections. No head trauma. he feels better today. Allergies: Coded Allergies: No Known Allergies (Unverified , 06/26/18) Medication History Scheduled Amlodipine Besylate* (Amlodipine Besylate*), Unknown Dose ORAL DAILY, (Reported) Atorvastatin Calcium* (Atorvastatin Calcium*), Unknown Dose ORAL BEDTIME, ( Reported) Lisinopril* (Lisinopril*), 10 MG ORAL DAILY, (Reported) Metformin Hcl* (Metformin Hcl*), 500 MG ORAL TWICE A DAY, (Reported) Patient History Healthcare decision maker Resuscitation status Full Code Advanced Directive on File No Past Medical/Surgical History Past Medical/Surgical History: (1) Dizziness (2) Chest pain (3) Diabetes mellitus (4) Dehydration (5) Proteinuria (6) ACS (acute coronary syndrome) Review of Systems Eye: Reports: no symptoms ENT: Reports: no symptoms Respiratory: Reports: no symptoms Cardiovascular: Reports: no symptoms Gastrointestinal: Reports: no symptoms Genitourinary: Reports: no symptoms Musculoskeletal: Reports: no symptoms Skin: Reports: no symptoms Psychiatric: Reports: no symptoms Neurological: Reports: no symptoms Endocrine: Reports: no symptoms Hematologic/Lymphatic: Reports: no symptoms All Other Systems: negative except mentioned in HPI Physical Exam General Appearance: WD/WN, no apparent distress HEENT: normocephalic, atraumatic, mucous membranes moist, PERRL, EOMI, pharynx normal, other Cardiovascular/Chest: normal rate Neurologic: recovery engineer II-XII grossly normal, no motor/sensory deficits, oriented x 3 , responsive, normal mood/affect, other - normal head shake and head thrust, normal fingr to nose, +Kechi Hallpike on left with rotational nystagmus to left Last 24 Hour Vital Signs Date Time Temp Pulse Resp B/P (MAP) Pulse Ox O2 Delivery O2 Flow Rate FiO2 01/09/19 15:59 159/79 01/09/19 12:00 58 01/09/19 12:00 97.3 58 20 147/85 (105) 97 01/09/19 08:57 Room Air 01/09/19 08:00 92 01/09/19 08:00 97.8 77 20 139/84 (102) 97 01/09/19 04:20 98.0 68 19 129/70 (89) 95 01/09/19 04:01 48 01/09/19 00:07 97.9 69 19 125/67 (86) 95 01/09/19 00:00 50 01/08/19 23:00 Room Air 01/08/19 20:00 97.7 67 19 128/66 (86) 95 01/08/19 20:00 74 Intake and Output 01/08/19 01/09/19 19:00 07:00 Intake Total 1500 ml Balance 1500 ml Intake Oral 500 ml IV Total 1000 ml # Voids 3 6 # Bowel Movements 1 1 Laboratory Tests Test 01/09/19 05:23 White Blood Count 4.5 K/UL (4.8-10.8) L Red Blood Count 4.44 M/UL (4.70-6.10) L Hemoglobin 14.5 G/DL (14.2-18.0) Hematocrit 41.5 % (42.0-52.0) L Mean Corpuscular Volume 93 FL (80-99) Mean Corpuscular Hemoglobin 32.6 PG (27.0-31.0) H Mean Corpuscular Hemoglobin Concent 34.8 G/DL (32.0-36.0) Red Cell Distribution Width 11.7 % (11.6-14.8) Platelet Count 176 K/UL (150-450) Mean Platelet Volume 6.9 FL (6.5-10.1) Neutrophils (%) (Auto) 42.5 % (45.0-75.0) L Lymphocytes (%) (Auto) 45.6 % (20.0-45.0) H Monocytes (%) (Auto) 7.3 % (1.0-10.0) Eosinophils (%) (Auto) 4.0 % (0.0-3.0) H Basophils (%) (Auto) 0.7 % (0.0-2.0) Sodium Level 139 MMOL/L (136-145) Potassium Level 3.8 MMOL/L (3.5-5.1) Chloride Level 103 MMOL/L (98-107) Carbon Dioxide Level 26 MMOL/L (21-32) Anion Gap 10 mmol/L (5-15) Blood Urea Nitrogen 11 mg/dL (7-18) Creatinine 0.8 MG/DL (0.55-1.30) Estimat Glomerular Filtration Rate > 60 mL/min (>60) Glucose Level 187 MG/DL (74-106) #H Hemoglobin A1c 8.1 % (4.3-6.0) H Uric Acid 5.7 MG/DL (2.6-7.2) Calcium Level 9.0 MG/DL (8.5-10.1) Phosphorus Level 3.7 MG/DL (2.5-4.9) Magnesium Level 1.9 MG/DL (1.8-2.4) Total Bilirubin 0.7 MG/DL (0.2-1.0) Aspartate Amino Transf (AST/SGOT) 22 U/L (15-37) Alanine Aminotransferase (ALT/SGPT) 34 U/L (12-78) Alkaline Phosphatase 50 U/L (46-116) Troponin I 0.000 ng/mL (0.000-0.056) C-Reactive Protein, Quantitative < 0.4 mg/dL (0.00-0.90) Pro-B-Type Natriuretic Peptide 46 pg/mL (0-125) Total Protein 7.0 G/DL (6.4-8.2) Albumin 4.0 G/DL (3.4-5.0) Globulin 3.0 g/dL Albumin/Globulin Ratio 1.3 (1.0-2.7) Triglycerides Level 260 MG/DL (30-150) H Cholesterol Level 182 MG/DL (< 200) LDL Cholesterol 112 mg/dL (<100) H HDL Cholesterol 26 MG/DL (40-60) L Cholesterol/HDL Ratio 7.0 (3.3-4.4) H Vitamin B12 Level 477 PG/ML (193-986) Thyroid Stimulating Hormone (TSH) 1.545 uiU/mL (0.358-3.740) Hepatitis A IgM Antibody Pending Hepatitis B Surface Antigen Pending Hepatitis B Core IgM Antibody Pending Hepatitis C Antibody Pending HIV (1&2) Antibody Rapid Negative (NEGATIVE) Height (Feet): 5 Height (Inches): 5.00 Weight (Pounds): 226 Medications Current Medications Medications (Trade) Dose Ordered Sig/Jade Route PRN Reason Start Time Stop Time Status Last Admin Dose Admin Aspirin (ASA) 162 mg DAILY ORAL 01/08/19 09:15 02/07/19 09:14 01/09/19 08:20 Dextrose (Dextrose 50%) 25 ml Q30M PRN IV Hypoglycemia 01/08/19 16:00 02/07/19 15:59 Dextrose (Dextrose 50%) 50 ml Q30M PRN IV Hypoglycemia 01/08/19 16:00 02/07/19 15:59 Fenofibrate (Tricor) 145 mg DAILY ORAL 01/09/19 15:00 02/08/19 14:59 01/09/19 15:59 Hydralazine HCl (Apresoline) 10 mg Q8HR ORAL 01/09/19 15:00 02/08/19 14:59 01/09/19 15:59 Hydralazine HCl (Apresoline) 25 mg Q4H PRN ORAL bp standing over 160 syst 01/09/19 15:00 02/08/19 14:59 Insulin Aspart (NovoLOG) BEFORE MEALS AND HS SUBQ 01/08/19 16:30 02/07/19 16:29 01/09/19 11:47 Meclizine HCl (Antivert) 25 mg Q6H PRN ORAL for dizziness 01/08/19 14:45 02/07/19 14:44 Nateglinide (Starlix) 120 mg TIAC ORAL 01/09/19 16:30 02/07/19 16:29 01/09/19 15:59 Ondansetron HCl (Zofran) 4 mg Q6H PRN IVP Nausea & Vomiting 01/08/19 11:15 02/07/19 11:14 Pantoprazole (Protonix) 40 mg BID ORAL 01/08/19 18:00 02/08/19 08:59 01/09/19 08:20 Potassium Chloride (K-Dur) 40 meq DAILY ORAL 01/08/19 14:31 02/07/19 14:30 01/09/19 08:19 Assessment/Plan Status: doing well, stable, progressing Assessment/Plan: left BPPV Diagnosis [place] I: I went over [employer] exercises with him and advised him to take it easy for a few days. If he gets this again he should get an outpatient audio and VNG. He can take antivert PRN if it comes back. F/u with PCP Radhika Foss MD Jan 09, 2019 16:48
--- NOTE | 2019-01-09 19:00 | NUR ---
NURSE NOTES: Patient is discharged home via private transportation with daughter. IV removed, no bleeding, no infiltration. manager monitoring removed and logged. All discharge papers done. Patient belonging list accounted for and signed by patient. Patient was in stable condition.
--- NOTE | 2019-01-09 22:30 | History and Physical Report ---
DATE OF ADMISSION: 01/08/2019 HISTORY OF PRESENT ILLNESS: The patient is basically admitted for vertigo, nausea, vomiting. The patient was dizzy for 2 days. Vomited. Status post fall. No syncopal episode. Had actually vertigo and was seen by Dr. Foss. The patient denies headache. Denies diarrhea. Denies constipation. Denies hematemesis. PAST MEDICAL HISTORY: Significant for hypertension, diabetes, history of chest infection. PAST SURGICAL HISTORY: None. SOCIAL HISTORY: Denies history of smoking, alcohol, or illicit drugs. MEDICATIONS: He takes diabetic medications and blood pressure medications. ALLERGIES: No known allergies. FAMILY HISTORY: Noncontributory. REVIEW OF SYSTEMS: HEENT: Denies headaches. RESPIRATORY: Denies shortness of breath. Denies cough. CARDIOVASCULAR: Denies chest pain. Denies orthopnea. GASTROINTESTINAL: Reported vomiting x2 days. No diarrhea. No abdominal pain. EXTREMITIES: Denies pain in lower extremities. CENTRAL NERVOUS SYSTEM: Denies change in vision or speech pattern. Did have dizziness and lightheadedness and vertigo for 1 day. PHYSICAL EXAMINATION: VITAL SIGNS: Temperature 97.2, pulse 78, blood pressure 120/60. HEENT: PERRLA. NECK: Supple. No lymphadenopathy. CHEST: Clear to auscultation. CARDIOVASCULAR: Regular rate and rhythm. No murmurs or extra sounds. GASTROINTESTINAL: Soft, nontender, nondistended. No organomegaly. EXTREMITIES: No edema. Moves all four extremities. NEUROLOGIC: Sensory intact to light touch. Reflexes equal on both sides. Moves all four extremities. LABORATORY DATA: Essentially normal. ASSESSMENT AND PLAN: Vertigo, dizziness. The patient was also found to be orthostatic. I have asked Dr. Foss of ENT, Dr. Cruz, Dr. Toscano to see the patient. Dr. Foss and Dr. Cruz cleared the patient for discharge. The patient also has accelerated hypertension. Most likely, his symptoms were due to orthostatic hypertension. I have told the patient to follow up with ENT as an outpatient. Dahlia Marcos M.D. DR: SHILPA JOB#: [id number] CC:
--- NOTE | 2019-01-10 10:36 | Discharge Summary ---
Discharge Summary Discharge Summary _ DATE OF ADMISSION: 01/08/2019 DATE OF DISCHARGE: 01/09/2019 DISCHARGED BY: Dr. Dahlia Barajas CONSULTANTS: Dr. Janes Foss BRIEF HOSPITAL COURSE: Patient is a 63-year-old male, with history of hypertension, diabetes, and hypercholesterolemia, presented to ED for complaints of dizziness. Patient had episodic spinning dizziness associated with nausea and few episodes of vomiting which started the day prior to presentation. Symptoms were triggered by turning his head rapidly. He had similar symptoms in the past. He denied any headache. Denied blurry vision. Denied slurred speech, numbness, tingling, and weakness. He had not tried any medications. He denied any loss of consciousness or gait instability. Symptoms eventually got worse and he started vomiting. On evaluation at ED, vital signs were stable. Blood work was unremarkable except for sodium which is 135 and potassium 3.4. Head CT was essentially unremarkable. There was an incidental finding of ethmoid sinus disease. Negative for acute intracranial bleed or mass-effect. Chest x-ray did not show any acute process. He was given meclizine. He was given aspirin. He presented with reproducible vertigo. He was then admitted for evaluation of vertigo and dizziness. He was admitted to monitored floor. He was given potassium supplements. Orthostatic vitals were checked. Lipid panel was checked. Blood glucose was monitored. He was placed on insulin sliding scale. He was given Starlix. Hemoglobin A1c was 8.1. WBC went down to 4.5. Civil Engineering Professional was consulted. Leukopenia was multifactorial. Medications were reviewed. IV and hepatitis panel were negative. Triglycerides were elevated to 260. He was started on TriCor. He was seen by Dr. Foss. Patient was instructed on Infante-Daroff exercises. He was diagnosed with left benign paroxysmal positional vertigo. He was advised to take Antivert as needed. He was recommended outpatient audio and videonystagmography (VNG). He was eventually discharged home. FINAL DIAGNOSES: Dizziness due to left benign paroxysmal positional vertigo Dehydration Diabetes mellitus, out of control Hypertension Possible gastroparesis Hypertriglyceridemia Leukopenia Hypertension DISPOSITION: Patient was discharged home. DISCHARGE INSTRUCTIONS: Follow-up in a week. I have been assigned to complete a discharge summary on this account, I was not involved with the patient's management.--JAYLEN Hall Jacqueline Robles NP Jan 10, 2019 10:36
--- NOTE | 2019-01-10 11:05 | Diagnostic Imaging Report ---
Indication: Abdominal pain Technique: Grayscale and duplex Doppler imaging of the abdomen performed. Comparison: None Findings: The liver is echogenic and measures 17 cm. Doppler interrogation of the main portal vein shows patency with hepatopedal, monophasic flow. There is no biliary ductal dilatation identified. The CBD is 2 mm. Gallbladder is unremarkable. Sonographic Chan's sign was negative per technologist. The pancreas, aorta and IVC are largely obscured by bowel gas. Both kidneys appear unremarkable. There is no hydronephrosis. IMPRESSION: Hepatomegaly and fatty infiltration
--- NOTE | 2019-01-10 15:00 | NUR ---
*-* INSURANCE *-* DISCHARGE SUMMARY HAS BEEN FAXED TO: EVANGELISTA BESS:TAMMI F:[phone]
== END 2019-01-09 19:16 | disposition home or self-care (01) | DRG 111 ==
LOC: EMR 06:30 → 2E 07:29 → EDBEDREQ 08:44
DX: H81.10 Benign paroxysmal vertigo, unspecified ear (principal); K31.84 Gastroparesis; E11.43 Type 2 diabetes mellitus with diabetic autonomic (poly)neuropathy; E11.65 Type 2 diabetes mellitus with hyperglycemia; E86.0 Dehydration; I10 Essential (primary) hypertension; E78.1 Pure hyperglyceridemia
CPT/HCPCS: 36415; 70450; 71045; 76700; 80053; 80061; 81003; 82607; 83036; 83690; 83735; 83880; 84100; 84443; 84484; 84550; 85025; 85610; 85730; 86140; 86703; 86705; 86709; 86803; 87340; 93005; 96361; 96374; 99285; J1815; J2405; J8499